=== PATIENT | female | born 2000 | race Caucasian/White ===

== ENCOUNTER 2020-05-08 17:21 | Emergency (ER) | payer MEDICAID, SELFPAY | END 2020-05-08 20:31 | disposition left against medical advice (07) | PROVIDERS: Emergency Provider Emergency Medicine | DX: T83.39XA Other mechanical complication of intrauterine contraceptive device, initial encounter (principal) ==

== ENCOUNTER 2020-05-10 13:21 | Emergency (ER) | payer MEDICAID, SELFPAY ==
--- NOTE | ~2020-05-10 | US_ITS ---
EXAMINATION: TRANSVAGINAL AND TRANSABDOMINAL ULTRASOUND OF THE PELVIS WITH COLOR DOPPLER CLINICAL INFORMATION: Bleeding. IUD. COMPARISON: No priors. TECHNIQUE: Transabdominal and transvaginal ultrasound of the pelvis was performed using grayscale, color and spectral Doppler imaging techniques. FINDINGS: The uterus is normal in size measuring 6.5 x 3.1 x 4.3 with a smooth surface contour and no discrete mass. The endometrial stripe is normal in thickness measuring 0.07 cm. There is no abnormal dilation of the uterine cavity. An intrauterine device is malpositioned in the cervical canal. The right ovary is normal in size measuring 3.2 x 2.5 x 3.3 and demonstrates normal color Doppler flow. The left ovary is normal in size measuring 3.1 x 1.7 x 1.8 and demonstrates normal color Doppler flow. There is no pelvic free fluid. US/US transvaginal IMPRESSION: Malpositioned intrauterine device positioned in the cervical canal.
--- NOTE | ~2020-05-10 | US_ITS ---
EXAMINATION: TRANSVAGINAL AND TRANSABDOMINAL ULTRASOUND OF THE PELVIS WITH COLOR DOPPLER CLINICAL INFORMATION: Bleeding. IUD. COMPARISON: No priors. TECHNIQUE: Transabdominal and transvaginal ultrasound of the pelvis was performed using grayscale, color and spectral Doppler imaging techniques. FINDINGS: The uterus is normal in size measuring 6.5 x 3.1 x 4.3 with a smooth surface contour and no discrete mass. The endometrial stripe is normal in thickness measuring 0.07 cm. There is no abnormal dilation of the uterine cavity. An intrauterine device is malpositioned in the cervical canal. The right ovary is normal in size measuring 3.2 x 2.5 x 3.3 and demonstrates normal color Doppler flow. The left ovary is normal in size measuring 3.1 x 1.7 x 1.8 and demonstrates normal color Doppler flow. There is no pelvic free fluid. US/US pelvic complete IMPRESSION: Malpositioned intrauterine device positioned in the cervical canal.
[2020-05-10 13:22] VITALS: BP 159/94; PULSE 87; RESP 16; TEMP 36.7; O2SAT 98; BMI 26.5
[2020-05-10 13:50] LABS: UPreg QC Valid YES; Urine Pregnancy NEGATIVE (NEGATIVE)
[2020-05-10 13:51] LABS: Appearance Urine CLEAR; Color Urine YELLOW; Glucose Urine UA NEG (NEG); Leukocyte Esterase Urine NEG (NEG); Nitrite Urine NEG (NEG); PH 7.5 (5.0-8.0); Specific Gravity - Urine 1.015 (1.005-1.025); Urine Blood NEG (NEG); Urine Ketones NEG (NEG); Urine Protein NEG (NEG-TRACE)
[2020-05-10 16:48] LABS: MANUAL DIFF FLAG NO
[2020-05-10 16:52] LABS: Basophils Absolute Auto 0.1 X10*3/uL (0.0-0.2); Basophils Percent Auto 0.9 % (0-2); Eosinophils Absolute Auto 0.4 X10*3/uL (0.0-0.4); Eosinophils Percent Auto 7.7 % (0-4); Hemoglobin 13.6 g/dl (12.0-16.0); Imm Gran Abs Auto 0.01 X10*3/uL (0.00-0.03); Imm Gran Pct Auto 0.2 % (0.0-0.4); Lymphocytes Absolute Auto 1.8 X10*3/uL (1.2-4.9); Lymphocytes Percent Auto 32.6 % (20-40); Mean Corpuscular HGB Conc 33.2 g/dl (31.0-35.0); Mean Corpuscular Hemoglobin 30.2 pg (27.0-33.0); Mean Corpuscular Volume 91.1 fL (80-98); Mean Platelet Volume 10.6 fL (9.4-12.3); Monocytes Absolute Auto 0.4 X10*3/uL (0.1-1.2); Monocytes Percent Auto 7.9 % (2-11); Neutrophils Absolute Auto 2.8 X10*3/uL (2.0-8.3); Neutrophils Percent Auto 50.7 % (45-73); Platelet Count 243 X10*3/uL (160-400); Red Cell Distribution Width 12.3 % (11.0-16.0); White Blood Count 5.6 X10*3/uL (4.8-10.8)
[2020-05-10 17:14] LABS: Anion Gap 13 (12-20); Blood Urea Nitrogen 12 mg/dL (9-16); Calcium 9.1 mg/dL (8.4-10.2); Carbon Dioxide 28 mmol/L (22-29); Chloride 105 mmol/L (96-108); Creatinine Clr Calc Pharmacy 101.1; Estimated Glomerular Filt Rate > 60; Glucose Random 60 mg/dL (60-115); Potassium 4.5 mmol/L (3.3-5.1); Sodium 141 mmol/L (135-145)
--- NOTE | 2020-05-10 19:19 | ED.FEMALEGU ---
HPI - Female Genitourinary General Chief complaint: Urogenital-Female Stated complaint: IUD ISSUE Source: patient Mode of arrival: ambulatory Limitations: no limitations History of Present Illness HPI Narrative: 20-year-old female with no significant past medical history presents with several days of abdominal cramping, abnormal vaginal bleeding, and nausea. She does have an IUD in place, and presents because this is her 2nd episode in the past 2 weeks. She describes the pain as a deep cramping gas like pain, but has been unrelieved with [id number] medications and bowel movement. She is sexually active, and does not report any risk of sexually transmitted infection at this time. She does not describe vaginal pain or abnormal discharge other than the bleeding. She denies chest pain or pressure, palpitations, shortness of breath, pain on inspiration, abdominal distention, dysuria, hematuria, fevers, chills, dizziness and weakness. MD elicited complaint: vaginal bleeding and pelvic pain Pertinent past history: IUD Onset (ago): week(s) (Intermittently for the past 2 weeks with abnormal vaginal bleeding) Location of symptoms: pelvis Severity: moderate Severity scale (1-10): 5 Quality of pain: cramping and aching Consistency: intermittent Vaginal discharge: none Vaginal bleeding: moderate and dark red Relieving factors: none Associated symptoms: denies other symptoms Sexual activity: Yes Patient : No Related Data : 0 Para: 0 Total number of abortions (spontaneous and elective): 0 Previous Rx's Medication Instructions Recorded doxycycline monohydrate 100 mg PO BID 14 Days #28 cap 05/10/20 fluconazole [Diflucan] 150 mg PO Q3D #2 tab 05/10/20 ibuprofen 600 mg PO Q6H PRN #60 tab 05/10/20 metronidazole [Flagyl] 500 mg PO Q12H 14 Days #28 tab 05/10/20 ondansetron HCl [Zofran] 4 mg PO Q8H PRN #20 tab 05/10/20 Allergies Allergy/AdvReac Type Severity Reaction Status Date / Time No Known Allergies Allergy Verified 05/10/20 13:29 Review of Systems Review of Systems: Constitutional: No Fever, No Chills ENT/Mouth: No sore throat, No Rhinorrhea Eyes: No Eye Pain, No Redness Cardiovascular: No Chest Pain, No SOB Respiratory: No Cough, No Sputum, No Wheezing Gastrointestinal: positive Nausea, No Vomiting, No Diarrhea, positive abdominal pain, Genitourinary: positive irregular bleeding, No Dysuria, No Urinary Frequency, positive pelvic pain Musculoskeletal: No Myalgias Skin: No rash Neuro: No Weakness, No Headache Psych: No Anxiety/Panic, No Depression Heme/Lymph: No bruising, No Lymphadenopathy Endocrine: No Polyuria, No Polydipsia Yes all other systems are reviewed and are negative [facility] Past Medical History Medical History No known health problems : 0 Para: 0 Total number of abortions (spontaneous and elective): 0 Social History Social History Alcohol intake: current Alcohol intake frequency: holidays/special occasions only Smoking Status: Never smoker Use of substances other than those prescribed or required for medical reasons: Yes Substance Use Type: Marijuana Substance Use Frequency: Occasionally Advance Directives: Yes Advance Directives Information Provided: No Advance Directives on File: No Physical Exam Vital Signs: Vital Signs: Last Vital Signs Temp 97.5 F 05/10/20 23:07 Pulse 50 05/10/20 23:07 Resp 18 05/10/20 23:07 BP 111/60 05/10/20 23:07 Pulse Ox 100 05/10/20 23:07 Body Mass Index 26.5 Appearance: Alert. Oriented X3. Mild distress. Eyes: Pupils equal, round and reactive to light. ENT: Pharynx normal. Neck: Normal inspection. Neck supple. CVS: Normal heart rate and rhythm. Pulses normal. Respiratory: No respiratory distress. Breath sounds normal. Abdomen: Soft and suprapubic tenderness noted to minimal palpation. Skin: Skin warm and dry. Normal skin color. Normal skin turgor. Extremities: No lower extremity edema. Neuro: No motor deficit. No sensory deficit. : External Female Exam: normal external appearance and normal appearance of the urethra Speculum Exam - Vagina: normal palpation, abnormal vaginal discharge white and caseous, No vaginal bleeding and No tissue present in vagina Speculum Exam - Cervix: normal appearance of the cervix, Cervical os closed, Cervical tenderness present and Other cervical findings present (IUD strings in place) Bimanual exam- vagina & uterus: normal bimanual exam, normal palpation, consistency normal, uterine mobility normal, Cervical tenderness present and no cervical motion tenderness Bimanual Exam- Adnexa, other: normal adnexae OB/external & speculum: no tissue noted in vagina and vaginal bleeding Course Course Course Narrative: 20-year-old female presents with 2 weeks of intermittent abnormal bleeding and cramping, has IUD in place. Physical exam is unremarkable, abdomen soft, mildly tender to deep palpation diffusely. Not actively bleeding at this moment. Labs are unremarkable, test is negative. Will order pelvic ultrasound. Pelvic ultrasound indicates IUD misplaced, pelvic exam completed with RN at bedside as airline operations agent, thick white discharge consistent with candidiasis, IUD visible removed with ring forceps, patient tolerated procedure well. Will treat for pelvic inflammatory disease, detailed description of medications with patient, plan is for her to follow up with certified orthotic fitter in about a week or sooner if symptoms persist. She does understand that if she has any fevers, chills, or any abnormal symptoms that she should return to the emergency department immediately for further workup. Patient verbalized understanding of and agrees plan of care discharge to home. Consultations Consultation #1: Jj Time: 22:00 MDM - Female Genitourinary MDM Narrative Medical decision making narrative: PID, candidiasis, displaced IUD Differential Diagnosis Differential diagnosis: Likely bacterial vaginosis, trichomoniasis and cervicitis Medical Records Attestation: I reviewed the patient's medical records. Lab Data Attestation: I reviewed the patient's lab results. Result diagrams: 05/10/20 16:17 05/10/20 16:17 Labs: Lab Results 05/10/20 05/10/20 05/10/20 Range/Units 13:38 16:17 16:17 WBC 5.6 (4.8-10.8) X10*3/uL RBC 4.50 (4.20-5.50) X10*6/uL Hgb 13.6 (12.0-16.0) g/dl Hct 41.0 (37-47) % MCV 91.1 (80-98) fL MCH 30.2 (27.0-33.0) pg MCHC 33.2 (31.0-35.0) g/dl RDW 12.3 (11.0-16.0) % Plt Count 243 (160-400) X10*3/uL MPV 10.6 (9.4-12.3) fL Immature Gran % (Auto) 0.2 (0.0-0.4) % Neut % (Auto) 50.7 (45-73) % Lymph % (Auto) 32.6 (20-40) % [place] % (Auto) 7.9 (2-11) % Eos % (Auto) 7.7 H (0-4) % Baso % (Auto) 0.9 (0-2) % Lymph # (Auto) 1.8 (1.2-4.9) X10*3/uL [place] # (Auto) 0.4 (0.1-1.2) X10*3/uL Eos # (Auto) 0.4 (0.0-0.4) X10*3/uL Baso # (Auto) 0.1 (0.0-0.2) X10*3/uL Abs Immat Gran (auto) 0.01 (0.00-0.03) X10*3/uL Absolute Neuts (auto) 2.8 (2.0-8.3) X10*3/uL Absolute Nucleated RBC 0.000 (0.0-0.012) X10*3/uL Nucleated RBC % (auto) 0.0 (0.0-0.2) /100WBC Hold Blue Top Sodium 141 (135-145) mmol/L Potassium 4.5 (3.3-5.1) mmol/L Chloride 105 (96-108) mmol/L Carbon Dioxide 28 (22-29) mmol/L Anion Gap 13 (12-20) BUN 12 (9-16) mg/dL Creatinine 0.79 (0.5-1.4) mg/dL Estim Creat Clear Calc 101.1 Estimated GFR > 60 Random Glucose 60 (60-115) mg/dL Calcium 9.1 (8.4-10.2) mg/dL Urine Color YELLOW Urine Appearance CLEAR Urine pH 7.5 (5.0-8.0) Ur Specific [place] 1.015 (1.005-1.025) Urine Protein NEG (NEG-TRACE) MG/DL Urine Glucose (UA) NEG (NEG) MG/DL Urine Ketones NEG (NEG) MG/DL Urine Blood NEG (NEG) Urine Nitrite NEG (NEG) Ur Leukocyte Esterase NEG (NEG) Urine Test NEGATIVE (NEGATIVE) 05/10/20 Range/Units 16:17 WBC (4.8-10.8) X10*3/uL RBC (4.20-5.50) X10*6/uL Hgb (12.0-16.0) g/dl Hct (37-47) % MCV (80-98) fL MCH (27.0-33.0) pg MCHC (31.0-35.0) g/dl RDW (11.0-16.0) % Plt Count (160-400) X10*3/uL MPV (9.4-12.3) fL Immature Gran % (Auto) (0.0-0.4) % Neut % (Auto) (45-73) % Lymph % (Auto) (20-40) % [place] % (Auto) (2-11) % Eos % (Auto) (0-4) % Baso % (Auto) (0-2) % Lymph # (Auto) (1.2-4.9) X10*3/uL [place] # (Auto) (0.1-1.2) X10*3/uL Eos # (Auto) (0.0-0.4) X10*3/uL Baso # (Auto) (0.0-0.2) X10*3/uL Abs Immat Gran (auto) (0.00-0.03) X10*3/uL Absolute Neuts (auto) (2.0-8.3) X10*3/uL Absolute Nucleated RBC (0.0-0.012) X10*3/uL Nucleated RBC % (auto) (0.0-0.2) /100WBC Hold Blue Top SEE NOTE Sodium (135-145) mmol/L Potassium (3.3-5.1) mmol/L Chloride (96-108) mmol/L Carbon Dioxide (22-29) mmol/L Anion Gap (12-20) BUN (9-16) mg/dL Creatinine (0.5-1.4) mg/dL Estim Creat Clear Calc Estimated GFR Random Glucose (60-115) mg/dL Calcium (8.4-10.2) mg/dL Urine Color Urine Appearance Urine pH (5.0-8.0) Ur Specific [place] (1.005-1.025) Urine Protein (NEG-TRACE) MG/DL Urine Glucose (UA) (NEG) MG/DL Urine Ketones (NEG) MG/DL Urine Blood (NEG) Urine Nitrite (NEG) Ur Leukocyte Esterase (NEG) Urine Test (NEGATIVE) Imaging Data Pelvic ultrasound: Attestation: I personally reviewed and interpreted this imaging study as follows: Radiologist's impression: CLINICAL INFORMATION: Bleeding. IUD. COMPARISON: No priors. TECHNIQUE: Transabdominal and transvaginal ultrasound of the pelvis was performed using grayscale, color and spectral Doppler imaging techniques. FINDINGS: The uterus is normal in size measuring 6.5 x 3.1 x 4.3 with a smooth surface contour and no discrete mass. The endometrial stripe is normal in thickness measuring 0.07 cm. There is no abnormal dilation of the uterine cavity. An intrauterine device is malpositioned in the cervical canal. The right ovary is normal in size measuring 3.2 x 2.5 x 3.3 and demonstrates normal color Doppler flow. The left ovary is normal in size measuring 3.1 x 1.7 x 1.8 and demonstrates normal color Doppler flow. There is no pelvic free fluid. US/US pelvic complete IMPRESSION: Malpositioned intrauterine device positioned in the cervical canal. Discharge Plan Discharge Clinical Impression: Candidiasis of genitalia in female, Acute pelvic inflammatory disease, Encounter for IUD removal Patient Disposition: Home, Self-Care Instructions: Pelvic Inflammatory Disease (ED), Yeast Infection (ED) Additional Instructions: You were evaluated for pelvic pain, abnormal vaginal bleeding, and vaginal discharge. Pelvic ultrasound indicated that your IUD was misplaced and was noted to be inside the cervical canal. We removed your IUD. We are treating you for pelvic inflammatory disease consistent with IUD. You do not have a sexually transmitted infection. Please take doxycycline and Flagyl as directed for 14 days. Use Tylenol and Motrin as needed for pain management. Use Diflucan as directed. Diflucan is for candidiasis or vaginal yeast infection. If you develop fevers, chills, nausea, vomiting or any other concerning symptoms please return to the emergency department immediately. You have high risk for an infection called sepsis. Drink plenty of fluids. Do not engage in sexual activity until all your symptoms resolve and you have completed the entire course of antibiotics. You must follow-up with certified orthotic fitter. I referred you to Dr Gardner. Please call and request an appointment. Thank you for choosing this emergency department for evaluation. Please follow-up with primary care physician as needed. Return to the emergency department for any new, concerning, or worsening symptoms. Prescriptions: New doxycycline monohydrate 100 mg capsule 100 mg PO BID 14 Days Qty: 28 RF: 0 metronidazole [Flagyl] 500 mg tablet 500 mg PO Q12H 14 Days Qty: 28 RF: 0 ondansetron HCl [Zofran] 4 mg tablet 4 mg PO Q8H PRN (Reason: nausea and vomiting) Qty: 20 RF: 0 fluconazole [Diflucan] 150 mg tablet 150 mg PO Q3D Qty: 2 RF: 0 ibuprofen 600 mg tablet 600 mg PO Q6H PRN (Reason: pain) Qty: 60 RF: 0 Referrals: Thomas Gardner MD [Physician] - 2 days (PID associated with IUD)
[2020-05-10 19:27] VITALS: BP 102/62; PULSE 53; RESP 18; TEMP 37; O2SAT 100
--- NOTE | 2020-05-10 19:28 | PC.NURSE ---
STEADY GAIT TO ROOM 13. DENIES DIZZINESSA ND VAG BLEEDING AT THIS TIME. AWARE OF PLAN FOR U/S
--- NOTE | 2020-05-10 19:38 | PC.NURSE ---
again tachy in 160's and increased work of breathing. diaphoretic. medicated with ativan 2mg. incontinent of urine and cleansed. condom cath removed.
--- NOTE | 2020-05-10 21:26 | PC.NURSE ---
This rn at bedside w/ PROGRAM MANAGER RN Ce for pelvic exam- pt tolerated well, PROGRAM MANAGER RN removed IUD.
[2020-05-10 22:10] VITALS: BP 119/53; PULSE 53; RESP 18; TEMP 37.1; O2SAT 99
--- NOTE | 2020-05-10 22:49 | PM.GYNCN ---
BUTTERMAKER HELPER - CN: HPI Data of Consult Consult date: 05/10/20 Primary Care Provider: None Physician Consult Narrative Narrative: I was called regarding BRANDY FIELD , a 20 year old female presented the emergency rooms pelvic cramping the workup included a CBC, urine test, urine test, chemistry all within normal, ultrasound showed a displaced IUD which was taken out with no complications the patient was treated for PID with ceftriaxone and was prescribed doxycycline and was discharged home to be followed up in the office cc:: CC: ORIENTATION AND MOBILITY INSTRUCTOR - Review of Systems Review of Systems ROS Unobtainable: All systems reviewed & are unremarkable except as noted in HPI and below OB PMFSH Past Medical History Medical History No known health problems Social History Social History Alcohol intake: current Alcohol intake frequency: holidays/special occasions only Smoking Status: Never smoker Use of substances other than those prescribed or required for medical reasons: Yes Substance Use Type: Marijuana Substance Use Frequency: Occasionally Advance Directives: Yes Advance Directives Information Provided: No Advance Directives on File: No Meds Allergies Allergy/AdvReac Type Severity Reaction Status Date / Time No Known Allergies Allergy Verified 05/10/20 13:29 BUTTERMAKER HELPER Physical Exam Vitals Vital signs: Temp Pulse Resp BP Pulse Ox 98.7 F 53 18 119/53 L 99 05/10/20 22:10 05/10/20 22:10 05/10/20 22:10 05/10/20 22:10 05/10/20 22:10 Body Mass Index 26.5 BUTTERMAKER HELPER - Results Labs CBC & Chem 7: 05/10/20 16:17 05/10/20 16:17 Labs: Short CBC 05/10/20 Range/Units 16:17 WBC 5.6 (4.8-10.8) X10*3/uL Hgb 13.6 (12.0-16.0) g/dl Hct 41.0 (37-47) % Plt Count 243 (160-400) X10*3/uL BMP 05/10/20 16:17 Sodium 141 Potassium 4.5 Chloride 105 Carbon Dioxide 28 BUN 12 Creatinine 0.79 Calcium 9.1 Urine 05/10/20 Range/Units 13:38 Urine Color YELLOW Urine Appearance CLEAR Urine pH 7.5 (5.0-8.0) Ur Specific [place] 1.015 (1.005-1.025) Urine Protein NEG (NEG-TRACE) MG/DL Urine Glucose (UA) NEG (NEG) MG/DL Urine Test NEGATIVE (NEGATIVE) Assessment and Plan (1) Acute pelvic inflammatory disease: Status: Acute GC and chlamydia BV panel taken, the patient was treated with PID and IUD removed, will follow-up in the office in 48 hours for pelvic exam and evaluation, Instructions to be given to patient to complete doxycycline antibiotics course and call or come back to the emergency room if pain or fever occurs
[2020-05-10 23:07] VITALS: BP 111/60; PULSE 50; RESP 18; TEMP 36.4; O2SAT 100
[2020-05-10] MEDS: cefTRIAXone sodium 500 MG, Lidocaine HCl 1 % MPF 1 ML IM (23:13)
[2020-05-10] MEDS: Fluconazole 150 MG TABLET PO (23:14)
[2020-05-10] MEDS: metroNIDAZOLE 500 MG TABLET PO (23:14)
[2020-05-10] MEDS: Ibuprofen 600 MG TABLET PO (23:14)
[2020-05-11 08:49] LABS: CT PCR NOT DETECTED (Not Detect.); NG PCR NOT DETECTED (Not Detect.)
[2020-05-11 09:11] LABS: BV Int Neg Control Negative (Negative); BV Int Pos Control Positive (Positive)
== END 2020-05-10 23:47 | disposition home or self-care (01) ==
PROVIDERS: Nurse Practitioner Family; Emergency Provider Emergency Medicine
DX: N73.0 Acute parametritis and pelvic cellulitis (principal); B37.3 Candidiasis of vulva and vagina; R10.2 Pelvic and perineal pain; Z30.432 Encounter for removal of intrauterine contraceptive device
CPT/HCPCS: 36415; 76830; 76856; 80048; 81003; 81025; 85025; 87480; 87491; 87510; 87591; 87660; 96372; 99283; 99284; J0696

== ENCOUNTER → 2020-05-21 09:21 | Outpatient (BNVA) | payer MEDICAID, SELFPAY | PROVIDERS: Visit Provider Advanced Practice Midwife | DX: Z30.09 Encounter for other general counseling and advice on contraception (principal); Z87.42 Personal history of other diseases of the female genital tract | CPT/HCPCS: 99202 ==

== ENCOUNTER 2020-10-17 14:15 | Emergency (ER) | payer MEDICAID, SELFPAY ==
[2020-10-17 14:55] VITALS: BP 153/96; PULSE 73; RESP 18; TEMP 36.1; O2SAT 99; BMI 24.7
[2020-10-17 15:12] LABS: UPreg QC Valid YES; Urine Pregnancy NEGATIVE (NEGATIVE)
--- NOTE | 2020-10-17 16:04 | ED_ITS ---
HPI - Female Genitourinary General Chief complaint: Vaginal Bleeding Stated complaint: ? Time Seen by Provider: 10/17/20 16:04 History of Present Illness HPI Narrative: Patient complains of late menstrual cycle which began a week late, there was initially some heavier bleeding using 2 or 3 pads in 1 day followed by light bleeding and some cramping, she has no abdominal pain no pelvic pain no dizziness or weakness Related Data Previous Rx's Medication Instructions Recorded doxycycline monohydrate 100 mg 100 mg PO BID 14 Days #28 cap 05/10/20 capsule ibuprofen 600 mg tablet 600 mg PO Q6H PRN #60 tab 05/10/20 metronidazole 500 mg tablet 500 mg PO Q12H 14 Days #28 tab 05/10/20 (Flagyl) ondansetron HCl 4 mg tablet 4 mg PO Q8H PRN #20 tab 05/21/20 (Zofran) ibuprofen 600 mg tablet 600 mg PO Q6H PRN #20 tab 10/17/20 Allergies Allergy/AdvReac Type Severity Reaction Status Date / Time No Known Allergies Allergy Verified 05/21/20 09:38 Review of Systems Review of Systems: Positive for irregular vaginal bleeding Negatives are no fever no chills no dizziness no weakness no fainting no feeling faint no headache no neck pain no chest pain no shortness of breath no abdominal pain no pelvic pain no dysuria no frequency no vaginal discharge Yes all other systems are reviewed and are negative [facility] Past Medical History Source: nursing notes reviewed Medical History No known health problems Social History Social History Alcohol intake: current Alcohol intake frequency: holidays/special occasions only Substance Use Type: Marijuana Advance Directives: No Advance Directives Information Provided: No Patient : No Physical Exam Vital Signs: Vital Signs: Last Vital Signs Temp 99.8 F 10/17/20 16:11 Pulse 82 10/17/20 16:11 Resp 16 10/17/20 16:11 BP 134/71 10/17/20 16:11 Pulse Ox 97 10/17/20 16:11 Body Mass Index 24.7 General appearance no acute distress the eyes are anicteric no pallor The neck is supple Respiratory no distress Abdomen is soft and nontender no rebound no guarding no suprapubic or pelvic tenderness Internal exam is deferred Extremities full range of motion x4 Skin no rash Course Course Course Narrative: Well-appearing patient with irregular light vaginal bleeding with no dizziness no weakness no pelvic pain no abdominal pain and who had concern for miscarriage is checked with a test which was negative, vital signs were normal Well-appearing asymptomatic female is advised to follow with manufacturing technology professor for evaluation of irregular bleeding and is discharged MDM - Female Genitourinary Lab Data Labs: Lab Results 10/17/20 Range/Units 15:02 Urine Test NEGATIVE (NEGATIVE) Discharge Plan Discharge Clinical Impression: Dysfunctional uterine bleeding Patient Disposition: Home, Self-Care Additional Instructions: Your test was negative and the exam of her abdomen was normal Irregular bleeding is common in young females, but if it continues follow with manufacturing technology professor or primary care doctor for further evaluation Return to the ER any time any worse condition or concerns Prescriptions: New ibuprofen 600 mg tablet 600 mg PO Q6H PRN (Reason: pain) Qty: 20 RF: 0 No Action doxycycline monohydrate 100 mg capsule 100 mg PO BID 14 Days Qty: 28 RF: 0 metronidazole [Flagyl] 500 mg tablet 500 mg PO Q12H 14 Days Qty: 28 RF: 0 ibuprofen 600 mg tablet 600 mg PO Q6H PRN (Reason: pain) Qty: 60 RF: 0 ondansetron HCl [Zofran] 4 mg tablet 4 mg PO Q8H PRN (Reason: nausea and vomiting) Qty: 20 RF: 0 Referrals: Thomas Gardner MD [Physician] - 2 days (Irregular bleeding) Interventions: ED Discharge Assessment Last Done: 10/17/20 16:27 Discharge Date/Time: 10/17/20 16:28
[2020-10-17 16:11] VITALS: BP 134/71; PULSE 82; RESP 16; TEMP 37.7; O2SAT 97
== END 2020-10-17 16:28 | disposition home or self-care (01) ==
PROVIDERS: Emergency Provider Emergency Medicine
DX: N93.8 Other specified abnormal uterine and vaginal bleeding (principal)
CPT/HCPCS: 81025; 99283